=== PATIENT | male | born 1985 | race Two or more races ===

== ENCOUNTER 2022-03-03 16:27 | Emergency (ER) | payer OTHER ==
[~2022-03-03] VITALS: Ht 188 cm; Wt 86.2 kg
[2022-03-03] MEDS ORDERED: TETRACAINE HCL 0.5% OPTH(EYE) SOLN 4ML RIGHTEYE ONE (18:00)
[2022-03-03] MEDS ORDERED: FLUORESCEIN SOD OPTH TEST STRIP RIGHTEYE ONE (18:00)
[2022-03-03 18:35] VITALS: BP 125/69
[2022-03-03] MEDS ORDERED: TOBRSUS35 RIGHTEYE ×3 (18:47→19:38)
== END 2022-03-03 19:25 | disposition home or self-care (01) ==
LOC: ER 16:27
DX: H10.31 Unspecified acute conjunctivitis, right eye (principal)